=== PATIENT | female | born 1935 | race Caucasian/White ===

== ENCOUNTER → 2018-08-14 | Outpatient (CLI) | payer MEDICARE ==
[~2018-08-14] MED LIST: ATORVASTATIN CA20 M1 PO; BACTRIM DS 8001 TA1 PO; CLOPIDOGREL75 MG PO; CO Q-1010 M2 PO; EYE VITAMIN-MI1 EACH PO; GARLIQUE5000 MCG PO; METOPROLOL25 MG PO; PRESERVISION A1 EAC1 PO; PRESERVISION L1 EACH PO; TRAMADOL HCL50 MG PO; VITAMIN D-32000 UNI1 PO
[2018-08-14 16:23] LABS: BASO % 0.3 % (0.0-1.0); HEMATOCRIT 41.4 % (37.0-47.0); HEMOGLOBIN 14.1 g/dl (12.0-16.0); LYMPH # 0.9 10*3/uL (1.3-4.4); LYMPH % 12.8 % (27.0-41.0); MEAN CELL VOLUME 88.5 fl (81.0-99.0); MEAN CORPUSCULAR HGB 30.1 pg (27.0-31.0); MEAN CORPUSCULAR HGB CONC 34.1 g/dl (33.0-37.0); MEAN PLATELET VOLUME 9.6 fl (9.6-12.3); MONO # 0.3 10*3/uL (0.1-1.0); MONO % 4.1 % (3.0-9.0); NEUT # 5.7 10*3/uL (2.3-7.9); NEUT % 82.2 % (47.0-73.0); PLATELET COUNT AUTOMATED 185 10*3/uL (130-400); RED BLOOD COUNT 4.68 10*6/uL (4.10-5.10); RED CELL DISTRI WIDTH 13.2 % (0-14.5); WHITE BLOOD COUNT 6.9 10*3/uL (4.8-10.8)
== END | disposition home or self-care (01) ==
LOC: LAB 15:41
PROVIDERS: Orthopaedic Surgery
DX: M85.88 Other specified disorders of bone density and structure, other site (principal); M51.36 Other intervertebral disc degeneration, lumbar region; M54.31 Sciatica, right side; M54.32 Sciatica, left side; M54.16 Radiculopathy, lumbar region

== ENCOUNTER 2019-03-08 08:59 | Inpatient (IN) | payer MEDICARE ==
[~2019-03-08] VITALS: Ht 160 cm; Wt 64.4 kg
[2019-03-08 08:59] VITALS: BP 146/78
[2019-03-08 09:27] LABS: BASO % 0.4 % (0.0-1.0); EOS % 0.4 % (1.0-4.0); HEMATOCRIT 39.8 % (37.0-47.0); HEMOGLOBIN 13.1 g/dl (12.0-16.0); LYMPH # 0.9 10*3/uL (1.3-4.4); LYMPH % 16.2 % (27.0-41.0); MEAN CELL VOLUME 91.5 fl (81.0-99.0); MEAN CORPUSCULAR HGB 30.1 pg (27.0-31.0); MEAN CORPUSCULAR HGB CONC 32.9 g/dl (33.0-37.0); MEAN PLATELET VOLUME 9.3 fl (9.6-12.3); MONO # 0.5 10*3/uL (0.1-1.0); MONO % 8.9 % (3.0-9.0); NEUT # 3.9 10*3/uL (2.3-7.9); NEUT % 73.5 % (47.0-73.0); PLATELET COUNT AUTOMATED 148 10*3/uL (130-400); RED BLOOD COUNT 4.35 10*6/uL (4.10-5.10); RED CELL DISTRI WIDTH 12.8 % (0-14.5); WHITE BLOOD COUNT 5.3 10*3/uL (4.8-10.8)
[2019-03-08 09:41] LABS: ALBUMIN 3.2 gm/dl (3.1-4.5); ALKALINE PHOSPHATASE 77 U/L (45-117); BUN 14 mg/dl (7-24); CHLORIDE 106 mmol/L (98-107); CPK 56 U/L (26-192); CREATININE 0.74 mg/dL (0.55-1.02); POTASSIUM 3.8 mmol/L (3.5-5.1); SGOT/AST 15 IU/L (3-35); SGPT/ALT 18 U/L (12-78); SODIUM 138 mmol/L (136-145); TOTAL PROTEIN 6.8 gm/dL (6.4-8.2)
[2019-03-08 09:44] LABS: ACT PARTIAL THROMBO TIME 28.2 SECONDS (20.0-32.1)
[2019-03-08 09:45] LABS: TROPONIN I < 0.015 ng/ml (<0.045)
[2019-03-08 10:09] LABS: BILIRUBIN NEGATIVE (NEGATIVE); BLOOD NEGATIVE (NEGATIVE); CLARITY CLOUDY (CLEAR); COLOR YELLOW (YELLOW); GLUCOSE NEGATIVE (NEGATIVE); KETONE NEGATIVE (NEGATIVE); LEUKO ESTERASE NEGATIVE (NEGATIVE); NITRITE NEGATIVE (NEGATIVE); PH 7.5 (5.0-9.0); UROBILINOGEN 0.2 E.U./dl (0.2-1.0)
[2019-03-08 10:15] VITALS: BP 125/58
[2019-03-08 10:27] LABS: BACTERIA 2+
[2019-03-08 10:28] LABS: MUCOUS 1+
[2019-03-08 11:00] VITALS: BP 154/74
--- NOTE | 2019-03-08 11:00 | NUR ---
Time: 1100 A 83 year old FEMALE admitted to 5E under services of TRUDY VELÁZQUEZ DO. Pt. arrived via bed from ER. Chief complaint: INABILITY TO AMBULATE, FALL. SUELLEN SEN
[2019-03-08] MEDS ORDERED: PROBIOTIC250 MG PO (11:28)
[2019-03-08] MEDS ORDERED: OMEGA-3 EC SOF1 EACH PO (11:28)
[2019-03-08] MEDS ORDERED: PRAVACHOL20 MG PO (11:28)
--- NOTE | 2019-03-08 11:29 | NUR ---
DR. SALDAÑA ON THE FLOOR AWARE PT HAVING PAIN, IN TO SEE PT. AWARE MEDS ARE UPDATED.
[2019-03-08 12:00] VITALS: BP 154/74
--- NOTE | 2019-03-08 12:00 | NUR ---
MEDICATED WITH MORPHINE IV PER PRN ORDER, SEE EMAR. FOR C/O LOWER BACK/TAILBONE PAIN WITH MOVEMENT. CALL LIGHT IN REACH. VISITOR AT HER SIDE.
--- NOTE | 2019-03-08 13:00 | NUR ---
RESTING IN BED. STATES PAIN MEDICATION HELPS UNLESS SHE IS MOVING. CALL LIGHT IN REACH. BED ALARM ON.
[2019-03-08 16:00] VITALS: BP 142/76
--- NOTE | 2019-03-08 16:07 | NUR ---
PT C/O LOWER BACK/TAILBONE PAIN WITH MOVEMENT. MEDICATED WITH MORPHINE IV PER PRN ORDER, SEE EMAR. VISITOR AT HER SIDE. CALL LIGHT IN REACH. SEE SHIFT ASSESSMENT.
--- NOTE | 2019-03-08 17:00 | NUR ---
RESTING IN BED ON LEFT SIDE MEDICATION WORKS WHEN SHE ISN'T MOVING. CALL LIGHT IN REACH. BED ALARM ON.
--- NOTE | 2019-03-08 18:00 | NUR ---
RESTING IN BED WITH EYES CLOSED. RESP-EASY AND REGULAR. IVF INFUSING WITH NO PROBLEM. CALL LIGHT IN REACH. SEE SHIFT ASSESSMENT.
[2019-03-08 20:00] VITALS: BP 136/72
--- NOTE | 2019-03-09 02:52 | NUR ---
PATIENT MEDICATED WITH MORPHINE FOR COMPLAINTS OF TAILBONE PAIN. WILL CONTINUE TO MONITOR. CALL LIGHT IN REACH.
[2019-03-09 06:36] LABS: BASO % 0.2 % (0.0-1.0); EOS % 0.4 % (1.0-4.0); HEMATOCRIT 35.3 % (37.0-47.0); HEMOGLOBIN 11.5 g/dl (12.0-16.0); LYMPH # 1.1 10*3/uL (1.3-4.4); LYMPH % 18.8 % (27.0-41.0); MEAN CELL VOLUME 92.7 fl (81.0-99.0); MEAN CORPUSCULAR HGB 30.2 pg (27.0-31.0); MEAN CORPUSCULAR HGB CONC 32.6 g/dl (33.0-37.0); MEAN PLATELET VOLUME 10.1 fl (9.6-12.3); MONO # 0.6 10*3/uL (0.1-1.0); MONO % 10.9 % (3.0-9.0); NEUT # 3.9 10*3/uL (2.3-7.9); NEUT % 69.2 % (47.0-73.0); PLATELET COUNT AUTOMATED 128 10*3/uL (130-400); RED BLOOD COUNT 3.81 10*6/uL (4.10-5.10); WHITE BLOOD COUNT 5.6 10*3/uL (4.8-10.8)
[2019-03-09 06:59] LABS: BUN 16 mg/dl (7-24); CHLORIDE 107 mmol/L (98-107); CREATININE 0.69 mg/dL (0.55-1.02); PHOSPHOROUS 2.3 mg/dL (2.5-4.9); POTASSIUM 3.7 mmol/L (3.5-5.1); SODIUM 141 mmol/L (136-145)
[2019-03-09 08:00] VITALS: BP 143/83
--- NOTE | 2019-03-09 08:13 | NUR ---
MORPHINE GIVEN FOR C/O TAILBONE PAIN. RATES 10/10 ON PAIN SCALE. WILL MONITOR.
--- NOTE | 2019-03-09 08:30 | NUR ---
Nursing screen and occupational therapy referral received. Thank you. Deidre Fuchs OTR/l
--- NOTE | 2019-03-09 09:15 | NUR ---
MORPHINE NOT EFFECTIVE PER PT.
--- NOTE | 2019-03-09 09:39 | NUR ---
PHYSICAL THERAPY Nursing screen received and chart reviewed. Physical therapy order received. Thank you. Evi Wallace,PT,DPT
--- NOTE | 2019-03-09 10:01 | NUR ---
ULTRAM GIVEN FOR C/O TAILBONE PAIN. RATES 10/10 ON PAIN SCALE. WILL MONITOR.
--- NOTE | 2019-03-09 10:51 | NUR ---
ULTRAM NOT EFFECTIVE PER PT. WILL MONITOR.
--- NOTE | 2019-03-09 10:56 | NUR ---
BRISTLE MACHINE OPERATOR faxed new referral to [facility] -LIVAN Boateng
--- NOTE | 2019-03-09 11:00 | NUR ---
Occupational Therapy evaluation completeed on 5 with full eval to follow. Precautions include fall risk,severe pain in low back interfering with ADLs and mobility,IV UE,moderate complexity level 99465. Recommend OT per pOC and SNF to enable return home alone. Thank you. Isaiah Fuchs OTR/l
[2019-03-09 12:00] VITALS: BP 138/78
--- NOTE | 2019-03-09 12:03 | NUR ---
Wwe Wrestler in to talk to patient. Patient states lives at HOME with ALONE. There are FEW steps in the home. Physician: SHIRIN Pharmacy: [facility] health services: [facility] Patient's level of ADLs: MINIMAL ASSIST Patient has working utilities: YES DME: [facility] Follow-up physician's appointment after d/c: WILL BE MADE BY HOSPITALIST NURSE DIRECTOR ON DISCHARGE Does patient want to access PORTAL?: NO Discharge plan PT WAS RECENTLY DC FROM [facility], AND WAS HOME WITH [facility]. PT STATES SHE WOULD LIKE TO GO BACK HOME ON DISCHARGE BUT DOESN'T THINK SHE WOULD BE ABLE TO. ASK HER IF SHE WANTED TO TALK WITH FAMILY ABOUT GOING BACK AND SHE STATES I KNOW THEY WILL SAY TO GO. WILL CONTINUE TO FOLLOW AND TALK TO FAMILY ABOUT DISCHARGE PLANS. NILAY DEAN
--- NOTE | 2019-03-09 12:09 | NUR ---
TALKED WITH PT ALEE IN ROOM ABOUT DISCHARGE PLANS. STATES SHE FEELS PT NEEDS TO GO BACK TO REHAB AND PT IS IN AGREEMENT. CV/CVN CV TSC SYSTEM OPERATOR INFORMED AND WILL MAKE REFERRAL.
--- NOTE | 2019-03-09 12:38 | NUR ---
MORPHINE GIVEN FOR C/O BACK PAIN. RATES 8/10 ON PAIN SCALE. WILL MONITOR.
--- NOTE | 2019-03-09 13:24 | NUR ---
MORPHINE APPEARS EFFECTIVE. PT IS RESTING IN BED WITH EYES CLOSED.
--- NOTE | 2019-03-09 13:47 | NUR ---
PHYSICAL THERAPY Physical therapy evaluation complete, 5E. Moderate complexity PT evaluation per chart review and evaluation (43875). Patient requires skilled PT services to address transfers, gait, and LE strength. Recommend SNF at discharge. Thank you. Evi Wallace,PT,DPT
--- NOTE | 2019-03-09 15:12 | NUR ---
AIRWAYS CONTROL SPECIALIST [facility]ed [facility]. Patient requires a 3 night stay. Patient would be able to go to [facility] on 03/11/2019 if medically stable. -LIVAN Boateng
--- NOTE | 2019-03-09 15:33 | NUR ---
NORCO GIVEN FOR C/O TAILBONE PAIN. RATES 10/10 ON PAIN SCALE. WILL MONITOR.
[2019-03-09 16:00] VITALS: BP 148/67
--- NOTE | 2019-03-09 16:17 | NUR ---
MIKI EFFECTIVE PER PT.
[2019-03-09 20:00] VITALS: BP 153/68
--- NOTE | 2019-03-09 20:03 | NUR ---
PATIENT MEDICATED WITH NORCO FOR COMPLAINTS OF TAILBONE PAIN AND VAGINAL PAIN. WILL CONTINUE TO MONITOR. CALL LIGHT IN REACH.
[2019-03-10] VITALS: BP 133/72
--- NOTE | 2019-03-10 03:49 | NUR ---
PATIENT MEDICATED WITH MORPHINE FOR COMPLAINTS OF TAILBONE PAIN. WILL CONTINUE TO MONITOR.
[2019-03-10 08:00] VITALS: BP 145/65
--- NOTE | 2019-03-10 08:44 | NUR ---
2MG MORPHINE GIVEN FOR C/O PAIN,01/06.
--- NOTE | 2019-03-10 10:12 | NUR ---
NORCO 5/325 MG GIVEN FOR C/O TAILBONE PAIN,12/06.
--- NOTE | 2019-03-10 10:32 | NUR ---
DR CARPENTER AND TEAM ROUNDED AND SEEN PT. ORDERS RECIEVED.
[2019-03-10 12:00] VITALS: BP 100/61
--- NOTE | 2019-03-10 12:36 | NUR ---
PT RESTING IN BED WITH EYES CLOSED. NO DISTRESS NOTED AT THIS TIME.PAIN MEDICATION EFFECTIVE AT THIS TIME. BED ALARM INTACT.CALL LIGHT IN REACH.
--- NOTE | 2019-03-10 14:57 | NUR ---
NORCO 5/325 MG GIVEN FOR C/O PAIN,03/08.
--- NOTE | 2019-03-10 15:12 | NUR ---
PT FAMILY AT BEDSIDE. DULCOLAX GIVEN TO PT FOR CONSTIPATION. PT PREVIOUSLY STATED SHE "HADN'T HAD BM FOR THREE DAYS" ON MY INITIIAL ASSESSMENT.PT NOW STATES IT HAS BEEN "6 DAYS WITHOUT A BM" PT STATES SHE CANT STAND THE PAIN AND QUESTIONED HOW WILL SHE GO. NOTIFIED DR JURADO.ENCOURAGED PT NOT TO HOLD BM OR WITHOLD FACT SHE HADN'T HAD BM SINCE TUESDAY PAST.
[2019-03-10 16:00] VITALS: BP 153/78
--- NOTE | 2019-03-10 16:18 | NUR ---
MEDICATED WITH MILK OF MAG FOR NO BM FOR MULTIPLE DAYS. WILL MONITOR.
[2019-03-10 20:00] VITALS: BP 138/70
--- NOTE | 2019-03-10 20:07 | NUR ---
PATIENT MEDICATED WITH PRN NORCO ORDERD FOR C/O TAILBONE PAIN. PLEASANT/COOPERATIVE FOR SHIFT ASSESSMENT. BED IN LOW POSITION, WHEELS LOCKED, CALL LIGHT IN REACH.
[2019-03-11] VITALS: BP 145/57
--- NOTE | 2019-03-11 06:15 | NUR ---
PATIENT MEDICATD WITH PRN NORCO ORDERED FOR C/O COCCYX PAIN RATED 10/10
[2019-03-11 08:00] VITALS: BP 140/88
[2019-03-11] MEDS ORDERED: HYDROCODONE-AC1 EAC1 PO (09:44)
--- NOTE | 2019-03-11 12:05 | NUR ---
Discharge instructions reviewed with patient/family. Patient receptive and verbalizes understanding. Follow-up care arranged. Written instructions given to patient/family. JORGE DE LEON
--- NOTE | 2019-03-11 12:11 | NUR ---
REPORT GIVEN TO NURSE AT [facility].
== END 2019-03-11 12:15 | disposition other institution (70) | DRG 552 ==
LOC: ED 08:59 → 5E 10:16 → EDHOLD 10:16 → 5E 10:32
PROVIDERS: Emergency Medicine; Student in an Organized Health Care Education/Training Program; ADMIT Family Medicine
DX: S32.10XA Unspecified fracture of sacrum, initial encounter for closed fracture (principal); I50.32 Chronic diastolic (congestive) heart failure; E44.0 Moderate protein-calorie malnutrition; W18.30XA Fall on same level, unspecified, initial encounter; D72.810 Lymphocytopenia; R73.9 Hyperglycemia, unspecified; F03.90 Unspecified dementia, unspecified severity, without behavioral disturbance, psychotic disturbance, mood disturbance, and anxiety; R82.71 Bacteriuria; M48.062 Spinal stenosis, lumbar region with neurogenic claudication; M16.0 Bilateral primary osteoarthritis of hip; M51.36 Other intervertebral disc degeneration, lumbar region; M41.86 Other forms of scoliosis, lumbar region; E78.00 Pure hypercholesterolemia, unspecified; M47.896 Other spondylosis, lumbar region; E78.5 Hyperlipidemia, unspecified; E55.9 Vitamin D deficiency, unspecified; I11.0 Hypertensive heart disease with heart failure; Y93.89 Activity, other specified; Y99.8 Other external cause status; Y92.098 Other place in other non-institutional residence as the place of occurrence of the external cause; Z88.8 Allergy status to other drugs, medicaments and biological substances; Z91.09 Other allergy status, other than to drugs and biological substances; Z86.73 Personal history of transient ischemic attack (TIA), and cerebral infarction without residual deficits; Z85.038 Personal history of other malignant neoplasm of large intestine; Z85.89 Personal history of malignant neoplasm of other organs and systems; Z91.81 History of falling; Z98.49 Cataract extraction status, unspecified eye; Z83.3 Family history of diabetes mellitus; Z82.3 Family history of stroke; Z82.49 Family history of ischemic heart disease and other diseases of the circulatory system; Z79.899 Other long term (current) drug therapy; Z79.02 Long term (current) use of antithrombotics/antiplatelets; Z68.25 Body mass index [BMI] 25.0-25.9, adult

== ENCOUNTER 2022-06-20 03:02 | Emergency (ER) | payer MEDICARE, MEDICAID ==
[~2022-06-20] VITALS: Wt 65.3 kg
[~2022-06-20 03:02] MED LIST changes: +CELECOXIB100 M1 PO; +FAMOTIDINE20 M1 PO; +HYDROCODONE-AC1 EAC1 PO; +MACROBID100 M1 PO; +OMEGA-3 EC SOF1 EACH PO; +OXYBUTYNIN5 MG PO; +PLAVIX75 M1 PO; +PRAVACHOL20 MG PO; +PRAVASTATIN SOD20 MG PO; +PROBIOTIC250 MG PO
[2022-06-20] MEDS ORDERED: CEFDINIR300 MG PO (03:22)
[2022-06-20 03:40] LABS: BILIRUBIN Negative (Negative); BLOOD 1+ (Negative); CLARITY Turbid (Clear); COLOR Yellow (Yellow); GLUCOSE Negative (Negative); KETONE Negative (Negative); LEUKO ESTERASE 3+ (Negative); NITRITE Negative (Negative); SPECIFIC GRAVITY <= 1.005 (1.001-1.030); UROBILINOGEN 0.2 E.U./dl (0.0-1.0)
[2022-06-20] MEDS ORDERED: LEVOFLOXACIN500 MG PO (03:42)
[2022-06-20 03:52] LABS: BACTERIA 2+; WBC TNTC wbc/hpf (0-5)
[2022-06-20 03:53] LABS: MUCOUS 1+
== END 2022-06-20 04:10 ==
LOC: ED 03:02
PROVIDERS: Emergency Medicine
DX: N39.0 Urinary tract infection, site not specified (principal); R30.0 Dysuria; Z88.8 Allergy status to other drugs, medicaments and biological substances; Z98.890 Other specified postprocedural states; Z98.49 Cataract extraction status, unspecified eye

== ENCOUNTER 2024-01-31 09:16 | Observation (INO) | payer OTHER ==
[2024-01-31] VITALS (9 sets, daily range): BP systolic 103–132; BP diastolic 50–95
[~2024-01-31] VITALS: Ht 165.1 cm; Wt 60.3 kg
[~2024-01-31 09:16] MED LIST changes: +ACETAMINOPHEN500 M4 PO; +AQUAPHOR WITH N50 GM T; +CEFDINIR300 MG PO; +CHILDREN'S CLARI5 MG PO; +DOCUSATE SOD100 MG PO; +Ipratropium Brom3 ML INH; +LEVOFLOXACIN500 MG PO; +LOPRESSOR25 MG PO; +MASON NATURAL325 MG PO; +MELATONIN5 M1 PO; +MIRALAX119 GM PO; +NYST SUSP PO; +OMEPRAZOLE MAGN20 MG PO; +Ondansetron4 MG PO; +PRESERVISION A1 EAC4 PO; +VITAMIN B COMP1 EAC1 PO; +VITAMIN B12500 MC2 PO; +VITAMIN C500 M4 PO
[2024-01-31 09:38] LABS: BASO % 0.2 % (0.0-1.0); HEMATOCRIT 29.8 % (37.0-47.0); LYMPH # 0.6 10*3/uL (1.3-4.4); LYMPH % 11.6 % (27.0-41.0); MEAN CELL VOLUME 97.1 fl (81.0-99.0); MEAN CORPUSCULAR HGB 30.3 pg (27.0-31.0); MEAN CORPUSCULAR HGB CONC 31.2 g/dl (33.0-37.0); MEAN PLATELET VOLUME 10.7 fl (9.6-12.3); MONO # 0.9 10*3/uL (0.1-1.0); MONO % 17.2 % (3.0-9.0); NEUT # 3.5 10*3/uL (2.3-7.9); NEUT % 70.2 % (47.0-73.0); PLATELET COUNT AUTOMATED 78 10*3/uL (130-400); RED BLOOD COUNT 3.07 10*6/uL (4.10-5.10); RED CELL DISTRI WIDTH 19.1 % (0-14.5)
[2024-01-31 09:49] LABS: ACT PARTIAL THROMBO TIME 30.8 SECONDS (20.0-32.1)
[2024-01-31 09:59] LABS: ALKALINE PHOSPHATASE 99 U/L (46-116); BUN 22 mg/dl (9-23); CHLORIDE 103 mmol/L (98-107); POTASSIUM 4.4 mmol/L (3.4-5.1); TOTAL PROTEIN 6.3 gm/dL (6.0-8.0)
[2024-01-31 10:08] LABS: SGPT/ALT < 7 U/L (5-49)
[2024-01-31] MEDS ORDERED: Magnesium Hydroxide 30 ML UDC PO PRN (13:05)
[2024-01-31] MEDS ORDERED: Ondansetron Hydrochloride 4 MG/2 ML VIAL IV PRN (13:05)
[2024-01-31] MEDS ORDERED: ACETAMINOPHEN 650 MG SUPP R PRN (13:05)
[2024-01-31] MEDS ORDERED: ACETAMINOPHEN 325 MG TAB PO PRN (13:05)
[2024-01-31] MEDS ORDERED: BISACODYL 10 MG SUPP R PRN (13:05)
[2024-01-31] MEDS ORDERED: BISACODYL 5 MG TAB PO PRN (13:05)
[2024-01-31] MEDS ORDERED: HEPARIN SODIUM 5,000 UNIT/ML VIAL SC SCH (22:00)
[2024-02-01 01:00] VITALS: BP 107/50
[2024-02-01] MEDS ORDERED: Melatonin 5 MG TABLET PO PRN (01:40)
[2024-02-01 04:46] VITALS: BP 102/48
[2024-02-01 06:21] LABS: MEAN CELL VOLUME 95.7 fl (81.0-99.0); MEAN CORPUSCULAR HGB 30.1 pg (27.0-31.0); MEAN CORPUSCULAR HGB CONC 31.5 g/dl (33.0-37.0); MEAN PLATELET VOLUME 10.3 fl (9.6-12.3); PLATELET COUNT AUTOMATED 79 10*3/uL (130-400); RED BLOOD COUNT 2.82 10*6/uL (4.10-5.10); RED CELL DISTRI WIDTH 19.3 % (0-14.5); WHITE BLOOD COUNT 4.4 10*3/uL (4.8-10.8)
[2024-02-01 06:29] LABS: MANUAL DIFF REFLEX YES
[2024-02-01 06:42] LABS: BUN 19 mg/dl (9-23); CHLORIDE 104 mmol/L (98-107); CHOLESTEROL 107 mg/dL (<200); POTASSIUM 3.9 mmol/L (3.4-5.1); TRIGLYCERIDES 301 mg/dl (<150)
[2024-02-01 06:43] VITALS: BP 104/46
[2024-02-01 07:21] LABS: TOTAL CELLS COUNTED 100 #CELLS
[2024-02-01 07:23] LABS: PLATELET SUFFICIENCY LOW (NORMAL)
[2024-02-01 07:45] VITALS: BP 106/46
[2024-02-01] MEDS ORDERED: Cholecalciferol 2,000 UNIT TABLET (50 MCG) PO SCH (10:00)
[2024-02-01] MEDS ORDERED: LORATADINE 10 MG TAB PO SCH (10:00)
[2024-02-01] MEDS ORDERED: CYANOCOBALAMIN 500 MCG TAB PO SCH (10:00)
[2024-02-01] MEDS ORDERED: DOCUSATE SODIUM 100 MG CAP PO SCH (10:00)
[2024-02-01] MEDS ORDERED: Clopidogrel Hydrogen Sulfate 75 MG TAB PO SCH (10:00)
[2024-02-01] MEDS ORDERED: FERROUS SULFATE 325 MG TAB PO SCH (10:00)
[2024-02-01] MEDS ORDERED: Metoprolol Tartrate 25 MG TAB PO SCH (10:00)
[2024-02-01 11:44] VITALS: BP 101/52
== END 2024-02-01 13:24 ==
LOC: ED 09:16 → EDHOLD 12:10
PROVIDERS: Emergency Medicine; ADMIT Internal Medicine; ATTEND Internal Medicine
DX: G90.9 Disorder of the autonomic nervous system, unspecified (principal); N17.0 Acute kidney failure with tubular necrosis; R73.9 Hyperglycemia, unspecified; E87.1 Hypo-osmolality and hyponatremia; E43 Unspecified severe protein-calorie malnutrition; I10 Essential (primary) hypertension; E78.5 Hyperlipidemia, unspecified; E55.9 Vitamin D deficiency, unspecified; Z79.899 Other long term (current) drug therapy

== ENCOUNTER → 2024-02-23 | Outpatient (CLI) | payer OTHER | END | disposition home or self-care (01) | LOC: CARD 00:12 | PROVIDERS: ATTEND Student in an Organized Health Care Education/Training Program | DX: I08.0 Rheumatic disorders of both mitral and aortic valves (principal); I50.30 Unspecified diastolic (congestive) heart failure ==

== ENCOUNTER 2024-04-16 22:54 | Emergency (ER) | payer OTHER ==
[~2024-04-16] VITALS: Ht 154.9 cm; Wt 70.8 kg
[2024-04-16] MEDS ORDERED: Phenylephrine HydrochloridE 0.5% NASAL 15 ML BOTTLE NAS ONE (23:00)
[2024-04-16 23:59] LABS: HEMATOCRIT 31.3 % (37.0-47.0); MEAN CELL VOLUME 100.3 fl (81.0-99.0); MEAN CORPUSCULAR HGB 31.4 pg (27.0-31.0); MEAN CORPUSCULAR HGB CONC 31.3 g/dl (33.0-37.0); PLATELET COUNT AUTOMATED 66 10*3/uL (130-400); RED BLOOD COUNT 3.12 10*6/uL (4.10-5.10); RED CELL DISTRI WIDTH 15.4 % (0-14.5); WHITE BLOOD COUNT 3.2 10*3/uL (4.8-10.8)
[2024-04-17 00:13] LABS: MANUAL DIFF REFLEX YES
[2024-04-17 00:20] LABS: POTASSIUM 4.3 mmol/L (3.4-5.1)
[2024-04-17 00:35] LABS: BASOPHILS 1 % (0-1); PLATELET SUFFICIENCY LOW (NORMAL); TOTAL CELLS COUNTED 100 #CELLS
== END 2024-04-17 00:46 | disposition home or self-care (01) ==
LOC: ED 22:54
PROVIDERS: Internal Medicine
DX: R04.0 Epistaxis (principal); F32.A Depression, unspecified; I11.0 Hypertensive heart disease with heart failure; I50.9 Heart failure, unspecified; M19.90 Unspecified osteoarthritis, unspecified site; F41.9 Anxiety disorder, unspecified; Z86.73 Personal history of transient ischemic attack (TIA), and cerebral infarction without residual deficits; Z88.8 Allergy status to other drugs, medicaments and biological substances; Z98.890 Other specified postprocedural states

== ENCOUNTER 2024-07-13 12:23 | Emergency (ER) | payer OTHER ==
[~2024-07-13] VITALS: Wt 63.3 kg
[~2024-07-13 12:23] MED LIST changes: +AMPICILLIN500 MG PO; +METAMUCIL FIBE3.4 GM PO; +MIDODRINE HCL5 M1 PO; +MIRTAZAPINE7.5 MG PO; +TUSSIN DM SYRU PO
[2024-07-13] MEDS ORDERED: SODIUM CHLORIDE 0.9% 1,000 ML IV ONE (12:35)
[2024-07-13 12:57] LABS: HEMATOCRIT 30.4 % (37.0-47.0); MEAN CELL VOLUME 105.2 fl (81.0-99.0); MEAN CORPUSCULAR HGB 30.4 pg (27.0-31.0); MEAN CORPUSCULAR HGB CONC 28.9 g/dl (33.0-37.0); MEAN PLATELET VOLUME 11.5 fl (9.6-12.3); PLATELET COUNT AUTOMATED 82 10*3/uL (130-400); RED BLOOD COUNT 2.89 10*6/uL (4.10-5.10); RED CELL DISTRI WIDTH 19.2 % (0-14.5); WHITE BLOOD COUNT 5.5 10*3/uL (4.8-10.8)
[2024-07-13 13:00] LABS: MANUAL DIFF REFLEX YES
[2024-07-13 13:21] LABS: BASOPHILS 1 % (0-1); PLATELET SUFFICIENCY LOW (NORMAL); POLYCHROMASIA SLIGHT; ROULEAUX MODERATE; TOTAL CELLS COUNTED 100 #CELLS
[2024-07-13 15:32] LABS: BILIRUBIN 1+ (Negative); BLOOD Negative (Negative); CLARITY Cloudy (Clear); COLOR Dark Yellow (Yellow); GLUCOSE Negative (Negative); KETONE Trace (Negative); LEUKO ESTERASE 3+ (Negative); NITRITE Negative (Negative); PH 5.5 (4.5-8.0); UROBILINOGEN 0.2 E.U./dl (0.0-1.0)
[2024-07-13 15:42] LABS: BACTERIA 3+; EPITHELIAL CELLS 0-2; WBC TNTC wbc/hpf (0-5)
[2024-07-13] MEDS ORDERED: Piperacillin Sodium/Tazobact 50 ML IV ONE (15:45)
[2024-07-13] MEDS ORDERED: AMOX-CLAV 875-1 EACH PO (15:51)
== END 2024-07-13 18:29 | disposition home or self-care (01) ==
LOC: ED 12:23
PROVIDERS: Emergency Medicine
DX: N39.0 Urinary tract infection, site not specified (principal); R41.0 Disorientation, unspecified; R53.1 Weakness; E78.5 Hyperlipidemia, unspecified; F32.A Depression, unspecified; I11.0 Hypertensive heart disease with heart failure; I50.9 Heart failure, unspecified; F41.9 Anxiety disorder, unspecified; Z86.73 Personal history of transient ischemic attack (TIA), and cerebral infarction without residual deficits; Z88.8 Allergy status to other drugs, medicaments and biological substances; Z98.890 Other specified postprocedural states